=== PATIENT | female | born 1960 | race Asian ===

== ENCOUNTER 2021-05-23 13:58 | Inpatient (IN) | payer BC, OTHER ==
[2021-05-23 14:29] VITALS: BMI 28.9
[2021-05-23 18:04] LABS: BASO % 0.4 % (0-2.0); EOS % 3.3 % (0-4.5); HEMATOCRIT 39.8 % (32.4-45.2); HEMOGLOBIN 13.1 GM/dL (10.7-15.3); LYMPH % 46.2 % (8-40); MCH 27.6 pg (25.7-33.7); MEAN CELL VOLUME 83.5 fl (80-96); MEAN PLT VOLUME 7.3 fl (7.5-11.1); MONO % 7.1 % (3.8-10.2); PLATELET COUNT 243 10^3/uL (134-434); RBC 4.76 M/mm3 (3.60-5.2); WHITE BLOOD COUNT 6.8 K/mm3 (4.0-10.0)
[2021-05-23 18:31] LABS: ALBUMIN 4.1 g/dl (3.4-5.0); BLOOD UREA NITROGEN 23.2 mg/dL (7-18)
[2021-05-23 18:35] LABS: CREATININE 0.8 mg/dL (0.55-1.3)
[2021-05-23 18:37] LABS: BILIRUBIN,TOTAL 0.7 mg/dL (0.2-1)
[2021-05-24] MEDS ORDERED: LOSARTAN POTASSIUM 50 MG TABLET ONE (09:22)
[2021-05-24 11:25] LABS: HEMATOCRIT 39.3 % (32.4-45.2); HEMOGLOBIN 13.1 GM/dL (10.7-15.3); MCH 28.2 pg (25.7-33.7); MCHC 33.5 g/dl (32.0-36.0); MEAN CELL VOLUME 84.2 fl (80-96); MEAN PLT VOLUME 7.6 fl (7.5-11.1); PLATELET COUNT 252 10^3/uL (134-434); RBC 4.66 M/mm3 (3.60-5.2); RDW 14.1 % (11.6-15.6); WHITE BLOOD COUNT 6.8 K/mm3 (4.0-10.0)
[2021-05-24 11:48] LABS: CALCIUM 9.8 mg/dL (8.5-10.1)
[2021-05-24 11:49] LABS: ALBUMIN 3.9 g/dl (3.4-5.0); BLOOD UREA NITROGEN 18.6 mg/dL (7-18)
[2021-05-24 11:51] LABS: BILIRUBIN,DIRECT 0.1 mg/dL (0.0-0.2); CREATININE 0.8 mg/dL (0.55-1.3)
[2021-05-24 11:53] LABS: BILIRUBIN,TOTAL 0.4 mg/dL (0.2-1); TOT PROT 7.7 g/dl (6.4-8.2)
[2021-05-24] MEDS: levETIRAcetam 250 MG TABLET PO SCH (22:40)
[2021-05-24] MEDS: ACETAMINOPHEN 500 MG TABLET (FP) PO PRN (22:40)
[2021-05-25] MEDS: ACETAMINOPHEN 500 MG TABLET (FP) PO PRN ×2 (06:47→22:19)
[2021-05-25] MEDS: levETIRAcetam 250 MG TABLET PO SCH ×3 (08:35→22:19)
[2021-05-25] MEDS: LOSARTAN POTASSIUM 50 MG TABLET PO SCH ×2 (08:35→09:37)
[2021-05-25] MEDS ORDERED: PT OWN MED DRAWER 7, Y5N ONE (18:49)
[2021-05-26] MEDS: ACETAMINOPHEN 500 MG TABLET (FP) PO PRN (07:11)
[2021-05-26] MEDS ORDERED: PT OWN MED DRAWER 7, Y5N ONE (09:42)
[2021-05-26] MEDS: levETIRAcetam 250 MG TABLET PO SCH ×2 (09:45→21:08)
[2021-05-26] MEDS: LOSARTAN POTASSIUM 50 MG TABLET PO SCH (09:45)
[2021-05-26] MEDS: ZONISAMIDE 100 MG CAPSULE PO SCH (10:43)
[2021-05-27] MEDS ORDERED: PT OWN MED DRAWER 7, Y5N ONE (09:16)
[2021-05-27] MEDS: LOSARTAN POTASSIUM 50 MG TABLET PO SCH (09:19)
[2021-05-27] MEDS: ACETAMINOPHEN 500 MG TABLET (FP) PO PRN ×2 (09:19→21:40)
[2021-05-27] MEDS: levETIRAcetam 250 MG TABLET PO SCH ×2 (09:19→21:30)
[2021-05-27] MEDS: ZONISAMIDE 100 MG CAPSULE PO SCH (09:20)
[2021-05-28] MEDS ORDERED: PT OWN MED DRAWER 7, Y5N ONE ×2 (09:25→21:58)
[2021-05-28] MEDS: levETIRAcetam 250 MG TABLET PO SCH ×2 (09:28→22:07)
[2021-05-28] MEDS: LOSARTAN POTASSIUM 50 MG TABLET PO SCH (09:28)
[2021-05-28] MEDS: ACETAMINOPHEN 500 MG TABLET (FP) PO PRN ×2 (09:28→22:28)
[2021-05-28] MEDS: ZONISAMIDE 100 MG CAPSULE PO SCH ×2 (09:30→22:07)
[2021-05-29] MEDS ORDERED: PT OWN MED DRAWER 7, Y5N ONE ×2 (08:54→20:58)
[2021-05-29] MEDS: levETIRAcetam 250 MG TABLET PO SCH ×2 (09:31→22:42)
[2021-05-29] MEDS: GABAPENTIN 300 MG CAPSULE PO SCH (09:31)
[2021-05-29] MEDS: ZONISAMIDE 100 MG CAPSULE PO SCH ×2 (09:31→22:42)
[2021-05-29] MEDS: LOSARTAN POTASSIUM 50 MG TABLET PO SCH (09:31)
[2021-05-29] MEDS: ACETAMINOPHEN 500 MG TABLET (FP) PO PRN ×2 (09:37→22:42)
[2021-05-30] MEDS ORDERED: PT OWN MED DRAWER 7, Y5N ONE ×2 (10:15→20:51)
[2021-05-30] MEDS: levETIRAcetam 250 MG TABLET PO SCH ×2 (10:19→21:02)
[2021-05-30] MEDS: GABAPENTIN 300 MG CAPSULE PO SCH (10:19)
[2021-05-30] MEDS: ZONISAMIDE 100 MG CAPSULE PO SCH ×2 (10:19→21:02)
[2021-05-30] MEDS: LOSARTAN POTASSIUM 50 MG TABLET PO SCH (10:19)
[2021-05-30] MEDS: ACETAMINOPHEN 500 MG TABLET (FP) PO PRN (16:16)
[2021-05-31] MEDS ORDERED: PT OWN MED DRAWER 7, Y5N ONE ×3 (08:15→21:38)
[2021-05-31] MEDS: LOSARTAN POTASSIUM 50 MG TABLET PO SCH (09:38)
[2021-05-31] MEDS: ZONISAMIDE 100 MG CAPSULE PO SCH ×2 (09:38→21:41)
[2021-05-31] MEDS: GABAPENTIN 300 MG CAPSULE PO SCH (09:38)
[2021-05-31] MEDS: ACETAMINOPHEN 500 MG TABLET (FP) PO PRN ×2 (09:39→19:43)
[2021-05-31] MEDS: levETIRAcetam 250 MG TABLET PO SCH ×2 (09:39→21:41)
[2021-06-01 06:42] VITALS: TEMP 98.2
[2021-06-01] MEDS: ACETAMINOPHEN 500 MG TABLET (FP) PO PRN (08:02)
[2021-06-01] MEDS: levETIRAcetam 250 MG TABLET PO SCH (09:03)
[2021-06-01] MEDS: ZONISAMIDE 100 MG CAPSULE PO SCH (09:03)
[2021-06-01] MEDS: LOSARTAN POTASSIUM 50 MG TABLET PO SCH (09:03)
[2021-06-01] MEDS: GABAPENTIN 300 MG CAPSULE PO SCH (09:03)
[2021-06-01 13:33] VITALS: BP 149/56; PULSE 68
== END 2021-06-01 16:28 | DRG 101 ==
LOC: JER 13:58 → JERBED 17:36 → J4S 05-24 12:41
PROVIDERS: ADMIT Psychiatry & Neurology Neurology; ATTEND Psychiatry & Neurology Neurology
PROC: 4A10X4Z Monitoring of Central Nervous Electrical Activity, External Approach (ICD-10-PCS; principal; 2021-05-23)
DX: G40.509 Epileptic seizures related to external causes, not intractable, without status epilepticus (principal); I69.354 Hemiplegia and hemiparesis following cerebral infarction affecting left non-dominant side; R51.9 Headache, unspecified; E11.9 Type 2 diabetes mellitus without complications; I10 Essential (primary) hypertension; R25.1 Tremor, unspecified; R25.3 Fasciculation; I25.10 Atherosclerotic heart disease of native coronary artery without angina pectoris; J45.909 Unspecified asthma, uncomplicated; M54.2 Cervicalgia; M54.9 Dorsalgia, unspecified; R53.1 Weakness
CPT/HCPCS: 36415; 71045-TC-FY; 80048; 80053; 80076; 80177; 82962; 85025; 85027; 93005; 93010; 95705; 97116-GP; 97161-GP; 99285-25; C9803; U0003; U0005